=== PATIENT | female | born 1945 | race Caucasian/White ===

== ENCOUNTER 2018-06-21 05:11 | Inpatient (IN) | payer MEDICARE, OTHER ==
[2018-06-18 09:32] LABS: BASOPHILS # (AUTO) 0.1 (0.0-0.1); BASOPHILS % 0.8 % (0.0-1.0); EOSINOPHILS # (AUTO) 0.1 (0.0-0.4); HEMATOCRIT 41.3 % (34.2-44.1); HEMOGLOBIN 13.9 g/dL (12.0-16.0); LYMPHOCYTES # (AUTO) 2.1 (1.0-3.2); MEAN CORPUSCULAR HEMOGLOBIN 30.7 pg (28-32); MEAN CORPUSCULAR HGB CONC 33.7 g/dL (31-35); MEAN CORPUSCULAR VOLUME 91.2 fL (81-99); MONOCYTES # (AUTO) 0.5 (0.2-0.8); MONOCYTES % 8.9 % (4.4-11.3); NEUTROPHILS # (AUTO) 3.2 (2.1-6.9); PLATELET COUNT 237 x10e3/uL (140-360); RED BLOOD COUNT 4.53 x10e6/uL (3.6-5.1); RED CELL DISTRIBUTION WIDTH 12.7 % (11.7-14.4)
[2018-06-18 09:52] LABS: ANION GAP 12.6 mmol/L (8-16); BLOOD UREA NITROGEN 13 mg/dL (7-26); BUN/CREATININE RATIO 15 (6-25); CALCIUM 9.7 mg/dL (8.4-10.2); CARBON DIOXIDE 26 mmol/L (22-29); CHLORIDE 104 mmol/L (98-107); CREATININE, SERUM 0.84 mg/dL (0.57-1.11); EST GLOMERULAR FILTRATION RATE > 60 ML/MIN (60-); GLUCOSE 111 mg/dL (74-118); POTASSIUM 3.6 mmol/L (3.5-5.1); SODIUM 139 mmol/L (136-145)
--- NOTE | 2018-06-18 10:04 | Diagnostic Imaging Report ---
PROCEDURE: Frontal and lateral views of the chest. COMPARISON: None. INDICATIONS: PREOPERATIVE FOR LEFT KNEE SURGERY FINDINGS: Lines/tubes: None. Lungs: A nodular opacity projects over the left mid lung zone. There is no evidence of pneumonia or pulmonary edema. Pleura: There is no pleural effusion or pneumothorax. Heart and mediastinum: The cardiomediastinal silhouette is unremarkable. Bones: No acute bony abnormality. Dextroconvex curvature of the thoracic spine. IMPRESSION: Nodular opacity projects over the left lung and is incompletely evaluated. A chest CT is recommended to evaluate for presence of pulmonary nodule. No evidence of pneumonia or pulmonary edema. Dictated by: ISAI SY M.D. on 06/18/2018 at 10:11 Electronically approved by: ISAI SY M.D. on 06/18/2018 at 10:11
[~2018-06-21] VITALS: Ht 167.6 cm; Wt 107.5 kg
[2018-06-21] VITALS (7 sets, daily range): BP systolic 138–165; BP diastolic 63–72
[~2018-06-21 05:11] MED LIST: BYSTOLIC10 MG PO; CELEBREX100 MG PO; HYDROCHLOROTHIA25 MG PO; SIMVASTATIN40 MG PO
[2018-06-21] MEDS ORDERED: DEXAMETHASONE SOD PHOS 10 MG/1 ML VIAL ONE (05:22)
[2018-06-21] MEDS ORDERED: CELECOXIB 200 MG CAP ONE (05:22)
[2018-06-21] MEDS ORDERED: GABAPENTIN 300 MG CAP ONE (05:23)
[2018-06-21] MEDS ORDERED: VANCOMYCIN 1GM/NS 250 ML 250 ML ONE (05:23)
[2018-06-21] MEDS ORDERED: ROPIVACAINE 246.25 MG, EPINEPHRINE HCL 1:1000 0.5 MG, CLONIDINE HCL 0.08 MG, KETOROLAC ... IV ONE ×5 (06:30)
[2018-06-21] MEDS ORDERED: BACITRACIN 50,000 UNIT VIAL ONE (06:41)
[2018-06-21] MEDS ORDERED: TRANEXAMIC ACID 1,000 MG/10 ML ML ONE (06:41)
[2018-06-21] MEDS ORDERED: ACETAMINOPHEN 650 MG SUPP PR PRN ×2 (08:30)
[2018-06-21] MEDS ORDERED: DIPHENHYDRAMINE HCL INJ 50 MG/ML VIAL IM/IV PRN ×2 (08:30)
[2018-06-21] MEDS ORDERED: PROMETHAZINE HCL (IM) 25 MG/ML VIAL INJ PRN ×2 (08:30)
[2018-06-21] MEDS ORDERED: ZOLPIDEM TARTRATE 5 MG TAB PO PRN ×2 (08:30)
[2018-06-21] MEDS ORDERED: ONDANSETRON HCL INJ 2 MG/ML VIAL IV PRN ×2 (08:30)
[2018-06-21] MEDS ORDERED: VANCOMYCIN 1GM/NS 250 ML 250 ML IV SCH ×2 (08:30)
[2018-06-21] MEDS ORDERED: KETOROLAC TROMETHAMINE 30 MG/ML VIAL IV PRN ×2 (08:30)
[2018-06-21] MEDS ORDERED: HYDROCODONE/APAP 5MG-325MG TAB PO PRN ×2 (08:30)
[2018-06-21] MEDS ORDERED: DOCUSATE SODIUM 100 MG CAP PO PRN ×2 (08:30)
[2018-06-21] MEDS ORDERED: HYDROCODONE/APAP 7.5MG-325MG 1 EA TAB PO PRN (08:30)
[2018-06-21] MEDS ORDERED: FENTANYL CITRATE/PF 100MCG/2 ML INJ ONE ×2 (08:51→19:56)
[2018-06-21] MEDS ORDERED: ASPIRIN 325 MG TAB PO SCH (09:00)
[2018-06-21] MEDS: ASPIRIN 325 MG TAB PO SCH ×2 (09:00→17:59)
[2018-06-21] MEDS ORDERED: CELECOXIB 100 MG CAP PO SCH ×2 (09:00)
--- NOTE | 2018-06-21 09:20 | Diagnostic Imaging Report ---
PROCEDURE: X-RAY LEFT KNEE, ONE OR TWO VIEWS COMPARISON: None. INDICATIONS:POST OPERATIVE KNEE REPLACEMENT FINDINGS: See conclusion. CONCLUSION: Status post total left knee replacement with surrounding soft tissue swelling, air and mayo consistent with recent surgery. No periprosthetic displaced fractures. Dictated by: Cedric Valencia M.D. on 06/21/2018 at 9:26 Electronically approved by: Cedric Valencia M.D. on 06/21/2018 at 9:26
--- NOTE | 2018-06-21 11:14 | Operative Report ---
DATE OF PROCEDURE: June 21, 2018 COUNTER STACKER: Royce Packer PA-C The patient was brought to the operating room for induction of anesthesia. Throughout this case, my PA's assistance was necessary for retraction of soft tissue and positioning of the extremity. This allows for efficient and technically successful execution of the operation and is considered medically necessary. PREOPERATIVE DIAGNOSIS: Osteoarthritis, left knee. POSTOPERATIVE DIAGNOSIS: Osteoarthritis, left knee. PROCEDURE: Left total knee arthroplasty. INDICATIONS: The patient is a 73-year-old lady who has end-stage arthritis of her left knee. She has failed conservative management and would now like to proceed with a left total knee replacement. The risks and benefits of the procedure have been explained. The added challenges due to her body mass index of 40 has been explained. She states she understands and wishes to proceed. DESCRIPTION OF PROCEDURE: The patient was brought to the operating room and placed under general anesthetic. She received prophylactic antibiotics, a regional block, and tranexamic acid in the holding area. Her left lower extremity was prepped and draped in a sterile manner. Added time and personnel was necessary due to her very large lower extremity. A preoperative time out was performed. The extremity was exsanguinated and a proximal tourniquet was inflated to 350 mmHg. An anterior approach with a medial parapatellar arthrotomy was performed. Abundant subcutaneous fatty tissue was encountered. The knee was brought up into flexion with the patella everted. Soft tissue releases were performed. The meniscal remnants and the cruciate ligaments were sacrificed. A Duarte [employer] Nephew Christy II posterior stabilized knee system was used throughout the case. The proximal tibia was carefully exposed. An extramedullary cutting guide was used to resect the proximal tibia. The tibial baseplate was a size #6 component. The central fin punch was impacted and attention was directed towards the distal femur. An intramedullary cutting guide was used to resect the distal femur in 6 degrees of valgus and rotation referencing off of a combination of landmarks including Eloisa's line, the epicondylar axis and the posterior condyles. The femoral component was a size #7. The anterior and posterior cuts were made. Trial reductions were performed. A 9-mm ultracongruent tibial insert provided appropriate soft tissue balancing in flexion and full extension. The patella was resurfaced with a 32 mm x 9 mm patellar button. The thickness was checked before and after and was right around 23 mm. Patellar tracking was noted to be concentric. The trial implants were then removed. A 100 mL premixed pericapsular injection was placed into the surrounding soft tissue. The knee was thoroughly irrigated with a shower-tip pulsatile lavage. A single mix of Palacos cement preloaded with antibiotics was used to cement the components into place. Care was taken to remove extravasated cement. The wound was further irrigated while the cement cured. The arthrotomy was then carefully closed with interrupted #1 Ethibond. The knee was put through flexion and extension to ensure a secure closure. The skin was closed with subcuticular Vicryl and mayo. A sterile Prevena Wound VAC was applied due to the abundant subcutaneous fatty tissue. The patient was extubated and transported to the recovery room in stable condition. Blood loss was minimal. All needle and sponge counts were correct. Job#: [id number] MOLLY
[2018-06-21] MEDS ORDERED: ACETAMINOPHEN 1000 MG/100 ML IV SCH (12:00)
[2018-06-21] MEDS: ACETAMINOPHEN 1000 MG/100 ML IV SCH ×2 (13:00→17:59)
[2018-06-21] MEDS: SODIUM CHLORIDE 0.9% 1000ML 1,000 ML IV SCH ×2 (13:00→18:18)
[2018-06-21] MEDS ORDERED: PROPOFOL IV EMULSION 10 MG/ML 20 ML VIAL ONE (15:27)
[2018-06-21] MEDS ORDERED: SEVOFLURANE INHAL SOLN 250 ML PEN BTL ONE (15:27)
[2018-06-21] MEDS ORDERED: KETOROLAC TROMETHAMINE 30 MG/ML VIAL ONE (15:27)
[2018-06-21] MEDS ORDERED: LIDOCAINE HCL 2% LOCAL INJ 5 ML SDV VIAL INJ ONE (15:27)
[2018-06-21] MEDS ORDERED: ONDANSETRON HCL INJ 2 MG/ML VIAL ONE (15:27)
[2018-06-21] MEDS: CELECOXIB 200 MG CAP PO SCH (17:59)
[2018-06-21] MEDS: VANCOMYCIN 1GM/NS 250 ML 250 ML IV SCH (18:10)
[2018-06-21] MEDS ORDERED: LIDOCAINE 2% /EPINEPHRINE 20 ML SDV INJ ONE (19:22)
[2018-06-21] MEDS ORDERED: ROPIVACAINE 0.5% 5 MG/ML 30 ML SDV ONE (19:22)
[2018-06-21] MEDS ORDERED: KETAMINE HCL INJ 50 MG/ML 10 ML VIAL ONE (19:56)
[2018-06-21] MEDS ORDERED: MIDAZOLAM HCL 2 MG/2 ML VIAL ONE (19:56)
[2018-06-21] MEDS ORDERED: SIMVASTATIN 40 MG TAB PO SCH (21:00)
--- NOTE | 2018-06-21 22:47 | Consultation ---
AUDIO CUTTING IN AND OUT IN MULTIPLE PORTIONS OF THE REPORT DATE OF CONSULTATION: June 21, 2018 REASON FOR CONSULTATION: Medical management. HISTORY OF PRESENT ILLNESS: A 73-year-old female patient in both knees, who is presently status post total knee arthroplasty on the left with good pain control. Initial attempts to ambulate were not successful today due to leg weakness and numbness. PAST MEDICAL HISTORY: Hypertension, osteoarthritis, hypercholesterolemia. SURGICAL HISTORY: Prior hysterectomy, appendectomy, cholecystectomy, and eye surgeries. MEDICATIONS: Per medication reconciliation form including 1. Celebrex 20 mg p.o. twice daily. 2. Nebivolol 10 mg p.o. daily. 3. Simvastatin 40 mg p.o. daily. 4. Hydrochlorothiazide 25 mg p.o. daily. ALLERGIES: DEMEROL AND PENICILLIN. SOCIAL HISTORY: Patient does not have any history of smoking or alcohol. FAMILY HISTORY: Coronary artery disease. REVIEW OF SYSTEMS CONSTITUTIONAL: No fever, chills or sweats. HEENT: No history of complaint. CARDIORESPIRATORY: Denies any chest pain or shortness of breath. GASTROINTESTINAL: No nausea, vomiting. PHYSICAL EXAMINATION VITALS: On the day of consultation, patient's temperature is 96.3, pulse is 58, respiration 16, blood pressure 146/66, pulse ox 98% on room air. GENERAL: Patient is alert, no acute distress. SKIN: Warm and dry. NECK: No JVD. No bruit of chest. HEART: Regular rate and rhythm. LUNGS: Clear. ABDOMEN: Obese, soft, nontender. EXTREMITIES: Patient's left lower extremity is dressed with dressing of the left knee. SCDs and SCDs were in place. Good capillary refilling. ASSESSMENT 1. Osteoarthritis of the knee, status post left total knee arthroplasty. 2. Hypertension. 3. Hypercholesterolemia. PLAN AND RECOMMENDATIONS: Patient will continue with postoperative care. Pain management, mobilization. DVT prophylaxis. Patient is stable. Continue with management for hypertension postoperatively. Job#: [id number]
[2018-06-22] VITALS: BP 144/95
[2018-06-22] MEDS: ACETAMINOPHEN 1000 MG/100 ML IV SCH ×2 (00:42→05:31)
[2018-06-22] MEDS: SODIUM CHLORIDE 0.9% 1000ML 1,000 ML IV SCH (03:15)
[2018-06-22 04:00] VITALS: BP 111/54
[2018-06-22 05:38] LABS: HEMATOCRIT 33.5 % (34.2-44.1); HEMOGLOBIN 11.2 g/dL (12.0-16.0)
[2018-06-22] MEDS: VANCOMYCIN 1GM/NS 250 ML 250 ML IV SCH (06:21)
[2018-06-22] MEDS: HYDROCODONE/APAP 7.5MG-325MG 1 EA TAB PO PRN ×2 (07:27→14:20)
[2018-06-22 08:00] VITALS: BP 124/64
[2018-06-22] MEDS ORDERED: ACETAMINOPHEN 1000 MG/100 ML IV PRN ×2 (08:30)
[2018-06-22] MEDS ORDERED: NEBIVOLOL 10 MG TAB PO SCH (09:00)
[2018-06-22 10:04] VITALS: BP 124/64
[2018-06-22] MEDS: ASPIRIN 325 MG TAB PO SCH (10:04)
[2018-06-22] MEDS: CELECOXIB 200 MG CAP PO SCH (10:04)
[2018-06-22] MEDS ORDERED: ASPIRIN325 MG PO (12:21)
[2018-06-22 13:54] VITALS: BP 130/59
[2018-06-23] MEDS ORDERED: HYDROCHLOROTHIAZIDE 25 MG TAB PO SCH (09:00)
== END 2018-06-22 15:39 | disposition home health service (06) | DRG 470 ==
LOC: OR 05:11 → PACU V 08:21 → MED/SURG 11:09
PROVIDERS: ADMIT Specialist; ATTEND Specialist
PROC: 0SRD0J9 Replacement of Left Knee Joint with Synthetic Substitute, Cemented, Open Approach (ICD-10-PCS; principal; 2018-06-21 07:00)
DX: M17.0 Bilateral primary osteoarthritis of knee (principal); I10 Essential (primary) hypertension; E78.5 Hyperlipidemia, unspecified; E66.01 Morbid (severe) obesity due to excess calories; Z68.38 Body mass index [BMI] 38.0-38.9, adult
CPT/HCPCS: 36415; 71046; 80048; 85014; 85018; 85025; 86850; 86900; 86920; 93005; 97139; C1713; J0171; J1100; J1885; J2001; J2250; J2405; J2795; J3370; J7030